=== PATIENT | male | born 1945 | race Native Hawaiian/Other Pacific Islander ===

== ENCOUNTER 2018-03-12 16:29 | Outpatient (CLI) | payer OTHER ==
[2018-03-12 17:20] LABS: PLATELET COUNT 233 K/uL (142-355)
[2018-03-12 17:53] LABS: POTASSIUM 6.2 mmol/L (3.6-5.2)
== END 2018-03-12 19:35 | disposition home or self-care (01) ==
LOC: LABW 16:29
PROVIDERS: Internal Medicine Cardiovascular Disease
DX: Z79.899 Other long term (current) drug therapy (principal); Z51.81 Encounter for therapeutic drug level monitoring
CPT/HCPCS: 36415; 80048; 85027

== ENCOUNTER 2019-08-11 13:39 | Outpatient (CLI) | payer OTHER | END 2019-08-11 19:36 | disposition home or self-care (01) | LOC: LAB 13:39 | PROVIDERS: Physician Assistant Medical | DX: N28.89 Other specified disorders of kidney and ureter (principal) | CPT/HCPCS: 80048 ==

== ENCOUNTER 2019-08-20 13:30 | Outpatient (CLI) | payer OTHER | END 2019-08-20 19:16 | disposition home or self-care (01) | LOC: LAB 13:30 | DX: D64.89 Other specified anemias (principal) | CPT/HCPCS: 85014; 85018 ==

== ENCOUNTER 2019-10-06 13:40 | Outpatient (CLI) | payer OTHER | END 2019-10-06 17:00 | disposition home or self-care (01) | LOC: US 13:40 | DX: E11.621 Type 2 diabetes mellitus with foot ulcer (principal) ==

== ENCOUNTER 2019-11-12 13:04 | Outpatient (CLI) | payer OTHER | END 2019-11-12 19:49 | disposition home or self-care (01) | LOC: LAB 13:04 | DX: D64.89 Other specified anemias (principal) | CPT/HCPCS: 85018 ==

== ENCOUNTER 2020-05-05 12:50 | Outpatient (CLI) | payer OTHER | END 2020-05-05 20:09 | disposition home or self-care (01) | LOC: LAB 12:50 | DX: D64.89 Other specified anemias (principal) | CPT/HCPCS: 85018 ==

== ENCOUNTER 2020-07-04 14:38 | Emergency (ER) | payer OTHER ==
[~2020-07-04] VITALS: Ht 180.3 cm; Wt 109.8 kg
[2020-07-04 14:38] VITALS: TEMP 98.1
[2020-07-04 15:33] LABS: PLATELET COUNT 177 K/uL (142-355)
[2020-07-04 15:49] LABS: PARTIAL THROMBOPLASTIN TIME 26.6 SECONDS (24.5-33.6)
[2020-07-04 15:50] LABS: POTASSIUM 3.8 mmol/L (3.6-5.2); SODIUM 127 mmol/L (136-145)
[2020-07-04 17:00] VITALS: BP 139/40
== END 2020-07-04 17:21 | disposition home or self-care (01) ==
LOC: ED 14:38
PROVIDERS: Hospitalist
DX: E86.0 Dehydration (principal); N18.6 End stage renal disease; Z99.2 Dependence on renal dialysis
CPT/HCPCS: 80053; 80320; 82550; 83880; 84484; 85027; 85610; 85730; 93005; 96361; 96374; 99284; J2405

== ENCOUNTER 2020-10-12 15:05 | Outpatient (CLI) | payer OTHER | END 2020-10-12 19:48 | disposition home or self-care (01) | LOC: LAB 15:05 | PROVIDERS: ATTEND Physician Assistant Medical | DX: D64.89 Other specified anemias (principal) | CPT/HCPCS: 85014; 85018 ==

== ENCOUNTER 2020-12-02 14:48 | Outpatient (CLI) | payer OTHER | END 2020-12-02 21:34 | disposition home or self-care (01) | LOC: LAB 14:48 | PROVIDERS: ATTEND Physician Assistant Medical | DX: D64.89 Other specified anemias (principal) | CPT/HCPCS: 85014; 85018 ==